=== PATIENT | male | born 1985 | race Two or more races ===

== ENCOUNTER → 2024-07-23 | Outpatient (CLI) | payer MEDICAID, SELFPAY ==
--- NOTE | 2024-07-23 15:14 | XR_ITS ---
Examination: Knee, right , 3 views Technique: Knee AP, lateral, oblique 3 views Date and time of exam: July 23, 2024 1525 hours INDICATIONS: Knee pain beginning 2 weeks ago. FINDINGS: No fracture or dislocation No foreign body No significant arthritic change IMPRESSION: No fracture or significant arthritic change
--- NOTE | 2024-07-23 15:17 | XR_ITS ---
Examination: Hand, left 3 views Technique: Hand AP, oblique, lateral 3 views Date and time of exam: July 23, 2024 1525 hours INDICATIONS: Hand pain beginning 2 weeks ago. FINDINGS: No acute fracture No dislocation No foreign body No erosive or other significant arthritic change IMPRESSION: No erosive or other significant arthritic change
== END | disposition home or self-care (01) ==
LOC: CDIM 14:48
PROVIDERS: PCP Physician Assistant; Referring Provider Physician Assistant; Visit Provider Physician Assistant
DX: M25.561 Pain in right knee (principal); M79.642 Pain in left hand
CPT/HCPCS: 73130; 73562

== ENCOUNTER → 2025-03-03 | Outpatient (CLI) | payer MEDICAID, SELFPAY ==
--- NOTE | 2025-03-03 12:00 | XR_ITS ---
Examination: Abdomen sonogram, complete Date and time of exam: March 03, 2025, 1153 hours INDICATIONS: Right upper abdominal pain beginning 5 months ago. Technique: Multiple real-time grayscale transabdominal sonographic images of the abdomen have been obtained. Findings: Normal gallbladder Normal common bile duct 0.3 cm Pancreatic head 3.0 cm Aorta not enlarged. Liver 13 cm no liver lesions Normal hepatopedal portal venous flow Patent IVC Right kidney 11.9 cm cortex 1.6 cm Left kidney 11.1 cm cortex 2.1 cm Moderate left renal scar formation Spleen 9.9 cm IMPRESSION: Normal gallbladder Normal common bile duct Liver normal size Moderate left renal parenchymal scar formation
== END | disposition home or self-care (01) ==
PROVIDERS: Referring Provider Physician Assistant; Visit Provider Physician Assistant
DX: N28.89 Other specified disorders of kidney and ureter (principal)
CPT/HCPCS: 76700